=== PATIENT | male | born 1980 | race Caucasian/White ===

== ENCOUNTER 2022-02-12 21:01 | Emergency (ER) | payer OTHER ==
[~2022-02-12] VITALS: Ht 165.1 cm; Wt 81.6 kg
[2022-02-12 21:04] VITALS: BP 157/95
[2022-02-12] MEDS ORDERED: KETOROLAC 30 MG/ML VIAL IM ONE (23:30)
[2022-02-13] MEDS ORDERED: IBUP-2218 PO (00:55)
[2022-02-13] MEDS ORDERED: KETOROLAC 30 MG/ML VIAL ONE (00:57)
[2022-02-13 02:00] VITALS: BP 137/86
== END 2022-02-13 02:32 | disposition home or self-care (01) ==
LOC: MED 21:01 → EDBD 21:01 → MED 02-13 02:32
DX: M54.50 Low back pain, unspecified (principal); Z79.899 Other long term (current) drug therapy; V89.2XXA Person injured in unspecified motor-vehicle accident, traffic, initial encounter; Y93.89 Activity, other specified; Y92.89 Other specified places as the place of occurrence of the external cause; Y99.8 Other external cause status
CPT/HCPCS: 72110; 96372; 99283; J1885

== ENCOUNTER 2022-02-16 10:19 | Emergency (ER) | payer OTHER ==
[~2022-02-16] VITALS: Ht 165.1 cm; Wt 83.0 kg
[~2022-02-16 10:19] MED LIST: IBUP-2218 PO
[2022-02-16 10:28] VITALS: BP 138/71
--- NOTE | 2022-02-16 10:32 | NUR ---
PT AMBULATED TO BED 4
--- NOTE | 2022-02-16 10:43 | NUR ---
PT TAKEN TO CT VIA WC
[2022-02-16 11:25] VITALS: BP 124/69
--- NOTE | 2022-02-16 11:27 | NUR ---
Patient discharged with v/s stable. Written and verbal after care instructions given and explained. Patient verbalized understanding. Ambulatory with steady gait. All questions addressed prior to discharge. Advised to follow up with PMD.
== END 2022-02-16 11:27 | disposition home or self-care (01) ==
LOC: MED 10:19
DX: M54.50 Low back pain, unspecified (principal); Z79.899 Other long term (current) drug therapy
CPT/HCPCS: 72131; 99284